=== PATIENT | male | born 1985 | race African-American/Black ===

== ENCOUNTER 2018-11-15 14:16 | Emergency (ER) | payer SELFPAY ==
[~2018-11-15] VITALS: Ht 185.4 cm; Wt 88.5 kg
[2018-11-15 14:34] VITALS: BP 142/86
--- NOTE | 2018-11-15 15:20 | PHYS DOC ---
Past Medical History Past Medical History: No Pertinent History Alcohol Use: None Drug Use: Marijuana Adult General Chief Complaint Chief Complaint: LACERATION/AVULSION HPI HPI Patient is a 32 year old male who presents with complaining of injury to right leg. Patient states he injured his right leg with a piece of metal while working on the car with laceration of right leg without other injuries or focal neuro deficit. Patient is up-to-date with tetanus immunization. Review of Systems Review of Systems Constitutional: Denies fever or chills [] Eyes: Denies change in visual acuity, redness, or eye pain [] HENT: Denies nasal congestion or sore throat [] Respiratory: Denies cough or shortness of breath [] Cardiovascular: No additional information not addressed in HPI [] GI: Denies abdominal pain, nausea, vomiting, bloody stools or diarrhea [] : Denies dysuria or hematuria [] Musculoskeletal: Denies back pain, reports joint pain [] Integument: Denies rash or skin lesions [] Neurologic: Denies headache, focal weakness or sensory changes [] Endocrine: Denies polyuria or polydipsia [] All other systems were reviewed and found to be within normal limits, except as documented in this note. Physical Exam Physical Exam Constitutional: Well developed, well nourished, mild distress, non-toxic appear ance. [] HENT: Normocephalic, atraumatic. Eyes: PERRLA, EOMI, conjunctiva normal, no discharge. [] Neck: Normal range of motion, no tenderness, supple, no stridor. [] Cardiovascular:Heart rate regular rhythm, no murmur [] Lungs & Thorax: Bilateral breath sounds clear to auscultation [] Extremities: 4 cm flap laceration of anterior side of right making medullary with 1 cm abrasion and skin missing of right leg, no tenderness, no cyanosis, no clubbing, ROM intact, no edema. [] Neurologic: Alert and oriented X 3, no focal deficits noted. [] Psychologic: Affect normal, judgement normal, mood normal. [] Current Patient Data Vital Signs Vital Signs Date Time Temp Pulse Resp B/P (MAP) Pulse Ox O2 Delivery O2 Flow Rate FiO2 11/15/18 14:34 97.6 50 16 142/86 (104) 99 97.6 EKG EKG [] Radiology/Procedures Radiology/Procedures [] Course & Med Decision Making Course & Med Decision Making Evaluation of patient in ER showed 31-year-old male patient with laceration of right leg that was repaired with 4 sutures of nylon.discharge: I've spoken with the patient and/or caregivers. I've explained the patient's condition, diagnosis and treatment plan based on information available to me at this time. I've answered the patient's and/or caregivers questions and addressed any concerns. The patient and/or caregivers have a good understanding the patient's diagnosis, condition and treatment plan as can be expected at this point. Vital signs have been stabilized. The patient's condition is stable for discharge from the emergency department. The patient will pursue further outpatient evaluation with her primary care provider or other designated consulting physician as outlined in the discharge instructions. Patient and/or caregivers are agreeable to this plan of care and follow-up instructions have been explained in detail. The patient and/or caregivers have received these instructions in written format and expressed understanding of these discharge instructions. The patient and her caregivers are aware that if any significant change in condition or worsening of symptoms should prompt him to immediately return to this of the closest emergency department. If an emergent department is not readily available I would encourage him to call 911. [place] Disclaimer Dragon Disclaimer This electronic medical record was generated, in whole or in part, using a voice recognition dictation system. Departure Departure Impression: Primary Impression: Laceration of right lower leg Disposition: HOME, SELF-CARE (at 1519) Condition: IMPROVED Referrals: NO PCP (PCP) Patient Instructions: Sutured Wound Care Additional Instructions: Keep wound clean and dry Follow-up with your primary care physician in 3-5 days Return to ER if not getting better Suture removal in 7-10 days Laceration Repair Lac Repair Indication: Right leg laceration Procedure: The patient was placed in the appropriate position and anesthesia around the flap laceration of anterior side of right leg was given with 1% lidocaine.. The area was then irrigated with normal saline. The laceration was repaired informed the with 4 sutures of 4-0 Ethilon. [ADDITIONAL LACS] The wound area was then dressed with gauze and Coban. Total repaired wound length: Per centimeter. Other Items: none The patient tolerated the procedure well. Complications: None. Problem Qualifiers Primary Impression: Laceration of right lower leg Encounter type: initial encounter Qualified Codes: S81.811A - Laceration without foreign body, right lower leg, initial encounter GEOVANI DOUGLASS MD Nov 15, 2018 15:20
== END 2018-11-15 15:25 | disposition home or self-care (01) ==
LOC: ER 14:16
DX: S81.811A Laceration without foreign body, right lower leg, initial encounter (principal); Y28.8XXA Contact with other sharp object, undetermined intent, initial encounter; Y93.89 Activity, other specified; Y92.69 Other specified industrial and construction area as the place of occurrence of the external cause; Y99.0 Civilian activity done for income or pay
CPT/HCPCS: 12002; 99283

== ENCOUNTER 2018-11-23 09:29 | Emergency (ER) | payer SELFPAY ==
[~2018-11-23] VITALS: Ht 177.8 cm; Wt 88.5 kg
[2018-11-23 09:55] VITALS: BP 142/86
--- NOTE | 2018-11-23 10:23 | PHYS DOC ---
Past Medical History Past Medical History: No Pertinent History Alcohol Use: None Drug Use: Marijuana Adult General Chief Complaint Chief Complaint: SUTURE/STAPLE REMOVAL HPI HPI Patient is a 32 year old AA male presents to the emergency room with a request for sutures to be removed from his right lower leg. Patient states he was here a week ago yesterday and had 4 sutures placed. He denies any numbness, tingling, pain, drainage, or weakness from the affected site. He denies any recent fever. He currently rates his pain a 0 out of 10 on the pain scale. [] Review of Systems Review of Systems Constitutional: Denies fever or chills [] Musculoskeletal: Denies back pain or joint pain [] Integument: see HPI Neurologic: Denies headache, focal weakness or sensory changes [] Complete systems were reviewed and found to be within normal limits, except as documented in this note. Physical Exam Physical Exam Constitutional: Well developed, well nourished, no acute distress, non-toxic appearance. [] HENT: Normocephalic, atraumatic, bilateral external ears normal, nose normal. [] Eyes: PERRLA, EOMI, conjunctiva normal, no discharge. [] Neck: Normal range of motion, no stridor. [] Lungs & Thorax: Respirations even and unlabored, no retractions, no respiratory distress Skin: Warm, dry, no erythema, no rash; healed laceration noted to the anterior right lower extremity, no wound dehiscence, no drainage, no erythema, no warmth. [] Extremities: No tenderness, no cyanosis, no clubbing, ROM intact, no edema. [] Neurologic: Alert and oriented X 3, no focal deficits noted. [] Psychologic: Affect normal, judgement normal, mood normal. [] Current Patient Data Vital Signs Vital Signs Date Time Temp Pulse Resp B/P (MAP) Pulse Ox O2 Delivery O2 Flow Rate FiO2 11/23/18 09:55 98.5 53 18 142/86 (104) 95 Room Air 98.5 EKG EKG [] Radiology/Procedures Radiology/Procedures 4 sutures were removed from the RLE with tweezers and scissors. No wound dehiscence, no drainage. Steri-strip placement ordered following suture removal. [] Course & Med Decision Making Course & Med Decision Making Pertinent Labs and Imaging studies reviewed. (See chart for details) [] [place] Disclaimer Dragon Disclaimer This electronic medical record was generated, in whole or in part, using a voice recognition dictation system. Departure Departure Impression: Primary Impression: Encounter for removal of sutures Disposition: HOME, SELF-CARE Condition: STABLE Referrals: NO PCP (PCP) Patient Instructions: Suture Removal-Brief Additional Instructions: You may take tylenol or ibuprofen as needed for pain/fever. Keep the area clean and dry. The steri strips will come off on their own. Follow up with your primary care doctor as needed, return to the ER if symptoms worsen. FERNANDO LOBATO BALL ENDER Nov 23, 2018 10:23
== END 2018-11-23 10:27 | disposition home or self-care (01) ==
LOC: ER 09:29
DX: S81.811D Laceration without foreign body, right lower leg, subsequent encounter (principal); X58.XXXD Exposure to other specified factors, subsequent encounter
CPT/HCPCS: 99282